=== PATIENT | female | born 1995 | race Caucasian/White ===

== ENCOUNTER 2016-08-09 21:03 | Emergency (ER) | payer SELFPAY ==
[~2016-08-09] VITALS: Ht 154.9 cm; Wt 77.5 kg
[2016-08-09 21:05] VITALS: BP 156/86; PULSE 114; RESP 24; TEMP 98.3; O2SAT 98
[2016-08-09 21:14] VITALS: RESP 20; O2SAT 98
[2016-08-09] MEDS ORDERED: SODIUM CHLOR 0.9% 1000 ML INJ 1,000 ML IV SCH (21:15)
[2016-08-09] MEDS ORDERED: SERO300T PO (21:21)
[2016-08-09] MEDS ORDERED: TRAZ150T75 PO (21:21)
[2016-08-09] MEDS ORDERED: PAXI20TA PO (21:21)
[2016-08-09] MEDS ORDERED: VIST50CA PO (21:21)
[2016-08-09] MEDS ORDERED: TOPA50TA7 PO (21:21)
--- NOTE | 2016-08-09 21:23 | PD ---
HPI Chief Complaint: OD/ Ingestion Time Seen by Provider: 21:11 Travel History International Travel<30 days: No Contact w/Intl Traveler<30days: No Traveled to known affect area: No History of Present Illness HPI 21-year-old female was brought in my EMS for possible drug overdose. Patient was found unresponsive in a local store's bathroom. Patient was with a friend. The friend reported patient was shooting up heroin and Dilaudid. Chest compression was performed by her friend at the scene. EMS was called. Patient was found to have a pulse when EMS arrived. IV was started. Patient was given Narcan 0.4 mg IV. Patient workup. Patient was transported to ED for evaluation. Patient complains of mild headache. Patient denies any neck pain. Patient complains of mild anterior chest wall pain. Patient denies abdominal pain. Patient denies any focal weakness or numbness of extremity. Patient admitted to abusing heroin and Dilaudid IV. Patient denies any alcohol abuse. Patient denies any chance of being . Patient states that she has history of bipolar disorder on medications for that. PFSH Past Medical History ?: Not LMP: 08/02/16 Social History Tobacco Use: No Allergies-Medications (Allergen,Severity, Reaction): Coded Allergies: No Known Allergies (Unverified , 08/09/16) Reported Meds & Prescriptions Reported Meds & Active Scripts Active Bactrim DS (Sulfamethoxazole-Trimethoprim) 800-160 Mg Tab 1 Tab PO BID Reported Prazosin (Prazosin HCl) 2 Mg Cap 3 Mg PO BID Trazodone (Trazodone HCl) 150 Mg Tab 150 Mg PO HS Seroquel (Quetiapine Fumarate) 300 Mg Tab 300 Mg PO HS Vistaril (Hydroxyzine Pamoate) 50 Mg Cap 50 Mg PO TID Paxil (Paroxetine HCl) 20 Mg Tab 20 Mg PO DAILY Topamax (Topiramate) 50 Mg Tab 50 Mg PO ONCE Review of Systems General / Constitutional: No: Fever Eyes: No: Visual changes HENT: Positive: Headaches Cardiovascular: Positive: Chest Pain or Discomfort Respiratory: No: Shortness of Breath Gastrointestinal: No: Abdominal Pain Genitourinary: No: Dysuria Musculoskeletal: No: Pain Skin: No Rash Neurologic: No: Weakness Psychiatric: No: Depression Endocrine: No: Polydipsia Hematologic/Lymphatic: No: Easy Bruising Physical Exam Narrative GENERAL: Well-nourished, well-developed patient. SKIN: Focused skin assessment warm/dry. HEAD: Normocephalic. EYES: No scleral icterus. No injection or drainage. NECK: Supple, trachea midline. No JVD or lymphadenopathy. CARDIOVASCULAR: Regular rate and rhythm without murmurs, gallops, or rubs. RESPIRATORY: Breath sounds equal bilaterally. No accessory muscle use. GASTROINTESTINAL: Abdomen soft, non-tender, nondistended. MUSCULOSKELETAL: No cyanosis, or edema. BACK: Nontender without obvious deformity. No CVA tenderness. Neurologic exam: Patient is awake and alert oriented 3. Patient moves all extremity well. No obvious focal neurological deficit. Data Data Last Documented VS Vital Signs Date Time Temp Pulse Resp B/P Pulse Ox O2 Delivery O2 Flow Rate FiO2 08/09/16 22:29 112 24 124/84 97 Nasal Cannula 2 08/09/16 21:05 98.3 Orders Electrocardiogram (08/09/16 21:12) Complete Blood Count With Diff (08/09/16 21:12) Comprehensive Metabolic Panel (08/09/16 21:12) Creatine Kinase (Cpk) (08/09/16 21:12) Troponin I (08/09/16 21:12) Prothrombin Time / Inr (Pt) (08/09/16 21:12) Act Partial Throm Time (Ptt) (08/09/16 21:12) Urinalysis - C+S If Indicated (08/09/16 21:12) Chest, Single Ap (08/09/16 21:12) Iv Access Insert/Monitor (08/09/16 21:12) Ecg Monitoring (08/09/16 21:12) Oximetry (08/09/16 21:12) Drug Screen, Random Urine (08/09/16 21:12) Sodium Chlor 0.9% 1000 Ml Inj (Ns 1000 M (08/09/16 21:15) Urine Culture (08/09/16 21:30) Labs Laboratory Tests Test 08/09/16 08/09/16 21:15 21:30 White Blood Count 8.0 TH/MM3 Red Blood Count 4.44 MIL/MM3 Hemoglobin 13.3 GM/DL Hematocrit 38.1 % Mean Corpuscular Volume 85.9 FL Mean Corpuscular Hemoglobin 29.9 PG Mean Corpuscular Hemoglobin 34.8 % Concent Red Cell Distribution Width 16.0 % Platelet Count 194 TH/MM3 Mean Platelet Volume 7.8 FL Neutrophils (%) (Auto) 59.0 % Lymphocytes (%) (Auto) 32.0 % Monocytes (%) (Auto) 6.6 % Eosinophils (%) (Auto) 2.0 % Basophils (%) (Auto) 0.4 % Neutrophils # (Auto) 4.8 TH/MM3 Lymphocytes # (Auto) 2.6 TH/MM3 Monocytes # (Auto) 0.5 TH/MM3 Eosinophils # (Auto) 0.2 TH/MM3 Basophils # (Auto) 0.0 TH/MM3 CBC Comment DIFF FINAL Differential Comment Prothrombin Time 10.6 SEC Prothromb Time International 1.0 RATIO Ratio Activated Partial 22.9 SEC Thromboplast Time Sodium Level 142 MEQ/L Potassium Level 4.0 MEQ/L Chloride Level 108 MEQ/L Carbon Dioxide Level 25.0 MEQ/L Anion Gap 9 MEQ/L Blood Urea Nitrogen 19 MG/DL Creatinine 1.17 MG/DL Estimat Glomerular Filtration 57 ML/MIN Rate Random Glucose 158 MG/DL Calcium Level 8.0 MG/DL Total Bilirubin 0.6 MG/DL Aspartate Amino Transf 23 U/L (AST/SGOT) Alanine Aminotransferase 18 U/L (ALT/SGPT) Alkaline Phosphatase 93 U/L Total Creatine Kinase 76 U/L Troponin I LESS THAN 0.02 NG/ML Total Protein 7.1 GM/DL Albumin 3.5 GM/DL Urine Color YELLOW Urine Turbidity HAZY Urine pH 5.0 Urine Specific Jordan 1.014 Urine Protein TRACE mg/dL Urine Glucose (UA) NEG mg/dL Urine Ketones NEG mg/dL Urine Occult Blood NEG Urine Nitrite NEG Urine Bilirubin NEG Urine Urobilinogen LESS THAN 2.0 MG/DL Urine Leukocyte Esterase TRACE Urine RBC 1 /hpf Urine WBC 4 /hpf Urine Squamous Epithelial 7 /hpf Cells Urine Calcium Oxalate Crystals OCC /hpf Urine Bacteria MOD /hpf Urine Hyaline Casts 20 /lpf Urine Mucus FEW /lpf Microscopic Urinalysis Comment CULTURE INDICATED Urine Opiates Screen POS Urine Barbiturates Screen NEG Urine Amphetamines Screen NEG Urine Benzodiazepines Screen NEG Urine Cocaine Screen NEG Urine Cannabinoids Screen POS MDM Medical Decision Making Medical Screen Exam Complete: Yes Emergency Medical Condition: Yes Interpretation(s) Last Impressions Chest X-Ray 08/09/162111 Signed Impressions: Service Date/Time: Tuesday, August 09, 2016 21:35 - CONCLUSION: No acute disease. Alexis Gaffney MD 22:41 PM. CBC within normal limit. BUN 19. Creatinine 1.17. GFR 57. Calcium 8.0. Cardiac enzymes are normal. UA positive for for WBC few Bacteria. Differential Diagnosis Differential diagnosis including drug overdose, electrolyte abnormality. Narrative Course 21-year-old female was brought in by EMS after overdose on Dilaudid and heroin IV. Patient was given Narcan 0.4 mEq M IV with good result. Normal saline solution 100 cc an hour. Patient will be observed in the ED. 22:49 PM. Patient's awake and alert oriented 3. Patient started on the feet. Patient will be discharged. Diagnosis Primary Impression: Drug overdose Qualified Code: T50.901A - Drug overdose, accidental or unintentional, initial encounter Additional Impression: UTI (urinary tract infection) Qualified Code: N30.00 - Acute cystitis without hematuria Patient Instructions: General Instructions Additional Instructions: Advised [facility] for drug problem. Take Bactrim DS as directed for UTI. Follow-up with personal physician. Return if needed. Med/Other Pt SpecificInfo: Prescription(s) given Scripts Sulfamethoxazole-Trimethoprim (Bactrim DS)800-160 Mg Tab1 Tab PO BID #6 TAB Prov:Torey Mendoza MD 08/09/16 Disposition: 01 DISCHARGE HOME Condition: Stable Torey Mendoza MD August 09, 2016 21:23
[2016-08-09 21:27] LABS: AUTOMATED NEUTROPHIL # 4.8 TH/MM3 (1.8-7.7); BASOPHIL % 0.4 % (0.0-2.0); EOSINOPHIL # 0.2 TH/MM3 (0-0.4); HEMATOCRIT 38.1 % (35.0-46.0); HEMO FLAGS DIFF FINAL; LYMPHOCYTE # 2.6 TH/MM3 (1.0-4.8); MEAN CELL VOLUME 85.9 FL (80.0-100.0); MEAN CORPUSCULAR HEMOGLOBIN 29.9 PG (27.0-34.0); MEAN CORPUSCULAR HGB CONC 34.8 % (32.0-36.0); MONO % 6.6 % (0.0-8.0); PLATELET COUNT 194 TH/MM3 (150-450); RED BLOOD COUNT 4.44 MIL/MM3 (4.00-5.30)
[2016-08-09] MEDS ORDERED: PRAZ2CAP PO (21:39)
[2016-08-09 21:42] LABS: APTT (PATIENT) 22.9 SEC (24.3-30.1); PROTHROMBIN TIME - PATIENT 10.6 SEC (9.8-11.6)
--- NOTE | 2016-08-09 21:45 | RADRPT ---
EXAM DATE/TIME: 08/09/2016 21:35 [place] COMPARISON: No previous studies available for comparison. INDICATIONS : Short of breath. Possible overdose. MEDICAL HISTORY : Unobtainable. SURGICAL HISTORY : Unobtainable. ENCOUNTER: Initial ACUITY: 1 day PAIN SCORE: Non-responsive. LOCATION: Bilateral chest FINDINGS: A single view of the chest demonstrates the lungs to be symmetrically aerated without evidence of mas s, infiltrate or effusion. The cardiomediastinal contours are unremarkable. Osseous structures are intact. CONCLUSION: No acute disease. Alexis Gaffney MD on August 09, 2016 at 21:43 Board Certified Radiologist. This report was verified electronically.
[2016-08-09 22:06] LABS: ALKALINE PHOSPHATASE 93 U/L (45-117); ALT (GPT) 18 U/L (10-53); ANION GAP 9 MEQ/L (5-15); AST (GOT) 23 U/L (15-37); BLOOD UREA NITROGEN 19 MG/DL (7-18); CHLORIDE 108 MEQ/L (98-107); GLOMERULAR FILTRATION RATE 57 ML/MIN (>89); SODIUM (NA) 142 MEQ/L (136-145); TOTAL BILIRUBIN ADULT 0.6 MG/DL (0.2-1.0)
[2016-08-09 22:07] LABS: CREATINE KINASE 76 U/L (26-192)
[2016-08-09 22:08] LABS: AMPHETAMINE, URINE NEG (NEG); BACTERIA, URINE MOD /hpf; BARBITURATES, URINE NEG (NEG); BLOOD, URINE NEG (NEG); CALCIUM OXALATE CRYSTALS,URINE OCC /hpf; COCAINE, URINE NEG (NEG); COMMENT (UR) CULTURE INDICATED; CULTURE IF INDICATED CULTURE INDICATED; GLUCOSE,URINE NEG (NEG); HYALINE CAST, URINE 20 /lpf (RARE); KETONE, URINE NEG (NEG); MUCUS URINE FEW /lpf (OCC); NITRITE,URINE NEG (NEG); SQUAMOUS EPITHELIAL CELL URINE 7 /hpf (0-5); URINE COLOR YELLOW (YELLW/STRAW)
[2016-08-09 22:29] VITALS: BP 124/84; PULSE 112; RESP 24; O2SAT 97
[2016-08-09] MEDS ORDERED: BACT800T5 PO (22:53)
--- NOTE | 2016-08-10 15:13 | EKG ---
Date Performed: 08/09/2016 Time Performed: 21:11:36 PTAGE: 21 years EKG: SINUS TACHYCARDIA LOW QRS VOLTAGE IN PRECORDIAL LEADS ABNORMAL RHYTHM ECG NO PREVIOUS TRACING DOCTOR: Scooter Mackenzie Interpretating Date/Time 08/10/2016 15:10:59
== END 2016-08-09 23:07 | disposition home or self-care (01) ==
LOC: NEPE 21:03
DX: T40.2X1A Poisoning by other opioids, accidental (unintentional), initial encounter (principal); T40.1X1A Poisoning by heroin, accidental (unintentional), initial encounter; R51 Headache; R07.89 Other chest pain; N39.0 Urinary tract infection, site not specified; R00.0 Tachycardia, unspecified
CPT/HCPCS: 71010; 80053; 80307; 81001; 82550; 84484; 85025; 85610; 85730; 87086; 93005; 96360; 99285; J7030

== ENCOUNTER 2016-10-04 13:04 | Emergency (ER) | payer OTHER ==
[~2016-10-04] VITALS: Ht 154.9 cm; Wt 80.0 kg
[~2016-10-04 13:04] MED LIST: BACT800T5 PO; PAXI20TA PO; PRAZ2CAP PO; SERO300T PO; TOPA50TA7 PO; TRAZ150T75 PO; VIST50CA PO
[2016-10-04 13:06] VITALS: BP 143/62; PULSE 97; RESP 20; TEMP 98.5; O2SAT 100
--- NOTE | 2016-10-04 13:16 | PD ---
Physical Exam Time Seen by Provider: 13:14 Narrative Pt presents to the ED for evaluation of left axillary abscess for 1 week. Has tried warm compresses. States had a fever the last several days at 101-102 degrees F. Has been taking ibuprofen and alkaseltzer. VSS. Awaiting bed placement. Data Data Last Documented VS Vital Signs Date Time Temp Pulse Resp B/P Pulse Ox O2 Delivery O2 Flow Rate FiO2 10/04/16 13:06 98.5 97 20 143/62 100 Room Air MDM Supervised Visit with KESHIA: Amena Jeronimo Oct 04, 2016 13:16
[2016-10-04] MEDS ORDERED: BACT800T5 PO (14:28)
[2016-10-04] MEDS ORDERED: IBUP800T23 PO (14:28)
[2016-10-04] MEDS ORDERED: CEPH-460 PO (14:28)
--- NOTE | 2016-10-04 14:28 | PD ---
HPI Chief Complaint: Skin Problem Time Seen by Provider: 14:24 Travel History International Travel<30 days: No Contact w/Intl Traveler<30days: No Traveled to known affect area: No History of Present Illness HPI 21-year-old female presents to the emergency Department with complaint of abscess to her left armpit times one week. Reports fever 2 days ago of 101.0. Denies fever yesterday or today. Denies vomiting. Denies paresthesias, loss of sensation, decreased range of motion, decreased strength to the affected extremity. Has been taking ibuprofen and Tylenol for symptom management. No known allergies. Has no other medical complaints. No other modifying factors or associated signs and symptoms. PFSH Past Medical History Bipolar Disorder: Yes Anxiety: Yes Diminished Hearing: No Past Surgical History Section: Yes (X2) Social History Alcohol Use: No Tobacco Use: No Substance Use: Yes (HEROIN/DILAUDID) Allergies-Medications (Allergen,Severity, Reaction): Coded Allergies: No Known Allergies (Unverified , 08/09/16) Reported Meds & Prescriptions Reported Meds & Active Scripts Active Bactrim DS (Sulfamethoxazole-Trimethoprim) 800-160 Mg Tab 1 Tab PO BID Reported Prazosin (Prazosin HCl) 2 Mg Cap 3 Mg PO BID Trazodone (Trazodone HCl) 150 Mg Tab 150 Mg PO HS Seroquel (Quetiapine Fumarate) 300 Mg Tab 300 Mg PO HS Vistaril (Hydroxyzine Pamoate) 50 Mg Cap 50 Mg PO TID Paxil (Paroxetine HCl) 20 Mg Tab 20 Mg PO DAILY Topamax (Topiramate) 50 Mg Tab 50 Mg PO ONCE Review of Systems Except as stated in HPI: all other systems reviewed are Neg Physical Exam Narrative GENERAL: Well-nourished, well-developed female patient, in no acute distress; afebrile, nontoxic-appearing SKIN: There is an indurated area to the left axilla which measures about 4 cm in diameter. It is fluctuant but there is no pointing or drainage. There is a zone of inflammation around it but no lymphangitis. Left upper extremity supple and non-tense with 2+ radial pulses and sensory intact without erythema or edema; no lymphangitis. HEAD: Atraumatic. Normocephalic. EYES: Pupils equal and round. No scleral icterus. No injection or drainage. ENT: Mucosa pink and moist. Airway patent. NECK: Trachea midline. CARDIOVASCULAR: Regular rate. RESPIRATORY: No accessory muscle use. GASTROINTESTINAL: Obese. MUSCULOSKELETAL: No obvious deformities. No clubbing. No cyanosis. No edema. NEUROLOGICAL: Awake and alert. Oriented 3. No obvious cranial nerve deficits. Motor grossly within normal limits. Normal speech. PSYCHIATRIC: Appropriate mood and affect; insight and judgment normal. Data Data Last Documented VS Vital Signs Date Time Temp Pulse Resp B/P Pulse Ox O2 Delivery O2 Flow Rate FiO2 10/04/16 13:06 98.5 97 20 143/62 100 Room Air Orders Wound Culture And Gram Stain (10/04/16 14:23) Lidocaine 1% Inj (50 Ml) (Xylocaine 1% I (10/04/16 14:30) [facility] Medical Decision Making Medical Screen Exam Complete: Yes Emergency Medical Condition: Yes Medical Record Reviewed: Yes Differential Diagnosis Abscess, folliculitis, cellulitis Narrative Course 21-year-old female with an abscess to the left axilla. See my procedure note for incision and drainage. Wound culture pending. Bactrim, Keflex, ibuprofen prescribed for home. Instructed patient to return to the emergency department or follow-up with primary care provider in 48 hours for packing removal. Instructed patient to follow up with primary care provider. Patient verbalizes understanding and agreement with treatment plan. Patient is medically cleared and stable for discharge. Discussed reasons to return to the emergency department. Patient agrees with treatment plan. The patients vital signs are stable and the patient is stable for outpatient follow-up and treatment. Patient discharged home, stable and in no acute distress. Procedures Procedure Narrative INCISION AND DRAINAGE OF ABSCESS: The area was prepped and was sterilely draped. A subcutaneous wheal of 1 % Xylocaine with a total number 3 mL was used to anesthetize the area properly. A number 11 scalpel was used to make a 1 -cm incision across the area of the abscess. The abscess was drained, complex loculations were broken down, and irrigated with normal saline. Cultures were obtained. Quarter inch iodoform packing was placed in the wound. Sterile dressing applied. Patient advised to have packing removed in two days. Diagnosis Primary Impression: Abscess of axilla, left Referrals: [facility] Primary Care Physician Patient Instructions: Abscess (ED), Abscess Follow-up (ED), Abscess Incision and Drainage (ED), General Instructions Departure Forms: Tests/Procedures, Work Release Enter return to work date: Oct 07, 2016 Additional Instructions: Complete full course of antibiotics Warm compresses to the affected area Keep area clean and dry Ibuprofen or Tylenol as directed and as needed for pain and inflammation Return to the emergency department or follow-up with primary care provider in 48 hours for abscess packing removal Follow-up with primary care provider Return to emergency department immediately with worsening of symptoms Med/Other Pt SpecificInfo: Prescription(s) given Scripts Ibuprofen 800 Mg [id number] Mg PO Q6HR PRN (PAIN) #30 TAB Ref 0 Prov:Amena Blair 10/04/16 Cephalexin (Keflex)500 Mg [id number] Mg PO Q6H 10 Days Ref 0 Prov:Amena Blair 10/04/16 Sulfamethoxazole-Trimethoprim (Bactrim DS)800-160 Mg Tab1 Tab PO BID 10 Days Ref 0 Prov:Amena Blair 10/04/16 Disposition: 01 DISCHARGE HOME Condition: Stable Amena Blair Oct 04, 2016 14:28
[2016-10-04] MEDS ORDERED: LIDOCAINE HCL 1% 50 ML VIAL INFIL ONE (14:30)
== END 2016-10-04 15:11 | disposition home or self-care (01) ==
LOC: NEPK 13:04
DX: L02.412 Cutaneous abscess of left axilla (principal)
CPT/HCPCS: 10061; 86403; 87070; 87186; 87205